=== PATIENT | male | born 1955 | race Caucasian/White ===

== ENCOUNTER 2022-11-04 09:37 | Day surgery (SDC) | payer BC, SELFPAY ==
[2022-11-04] VITALS (10 sets, daily range): BP systolic 129–156; BP diastolic 67–90; PULSE 60–95; RESP 14–18; TEMP 36.6; O2SAT 97–99; BMI 28.0
[2022-11-04] MEDS: lidocaine HCL 2 % MULTIDOSE 20 ML VIAL INJECTION (10:15)
[2022-11-04] MEDS: BUPIVACAINE 0.5% 30 ML INJECTION (10:15)
--- NOTE | 2022-11-04 10:51 | P.ORPRC_ITS ---
Procedure Note Date of procedure: 11/04/22 Procedure: Preop diagnosis: Left hand index finger stenosing tenosynovitis Postop diagnosis: Left hand index finger stenosing tenosynovitis Procedure: Left hand index finger A1 olga lidia release Anesthesia: Local Surgeon: Jey Mckeon MD surgical supply assistant: Faiza Rowell PA-C EBL: 0 mL Complications: None Specimens: None Drains: None Preoperative antibiotics: None Indications: The patient has a history of left upper extremity index finger painful catching and locking. Despite appropriate non operative management including flexor tendon sheath corticosteroid injections they continue to have symptoms. Operative intervention was recommended. The risks, benefits alternatives and expected outcomes were discussed in detail. These included but were not limited to: Infection, bleeding, injury to blood vessel or nerve, venous thromboembolism. All questions were answered to their satisfaction. The patient was placed supine on the operating room table. Local anesthesia was established with 0.5% Marcaine without epinephrine and 2% lidocaine without epinephrine. The hand was prepped and draped in usual sterile fashion. The limb was elevated the forearm pneumatic tourniquet was inflated to 250 mm of mercury. A transverse incision was made centered over the base of the index finger in the distal palmar crease. Subcutaneous dissection was taken through the palmar fascia to the flexor tendons with the tenotomy scissors. The A1 olga lidia was released with the 15 blade and a tenotomy scissors. Active flexion and extension of the finger shows no catching or locking, no bowstringing of the flexor tendons. The wound was closed with interrupted nylon sutures. A dry dressing was applied the tourniquet was released. Sponge and needle counts were correct x 2. The patient tolerated the procedure well, there were no apparent complications. They were sent to same day surgery in satisfactory condition. Plan: Use of the hand as tolerates. Discontinue the intraoperative dressing on postoperative day 3 and may get the wound wet as tolerates. Follow up in the office in 2 weeks for a wound check and suture removal.
== END 2022-11-04 10:59 | disposition home or self-care (01) ==
PROVIDERS: PCP Family Medicine; Visit Provider Orthopaedic Surgery
PROC: (CPT 26055; principal; 2022-11-04 10:45)
DX: M65.322 Trigger finger, left index finger (principal); M65.842 Other synovitis and tenosynovitis, left hand
CPT/HCPCS: 26055; J3490

== ENCOUNTER 2023-09-05 00:41 | Emergency (ER) | payer MEDICARE, BC, SELFPAY ==
[2023-09-05] VITALS (16 sets, daily range): BP systolic 133–170; BP diastolic 65–108; PULSE 60–79; RESP 16–18; TEMP 36.7; O2SAT 92–100; BMI 29.8
--- NOTE | 2023-09-05 00:53 | ED_ITS ---
HPI - General Adult General Chief complaint: Chest Pain Stated complaint: chest pain Time Seen by Provider: 09/05/23 00:56 History of Present Illness HPI narrative: CC: Epigastric Pain pt. awoke around midnight with epigastric pain . took 1 nitro with no relief . denies fevers, n/v, diarrhea, cough 68-year-old man presenting to the emergency department woke from sleep describing a twisting pain in the low sternal area. Had nuts before bed. Wondering if that might a be related. Does not think he is anxious just anxious due to the pain. Went to bed in usual state of health. No rashes. Tongue or lip swelling. Not really with numbness or tingling peripherally. No lower abdominal pain. Denies constipation. No fevers recently. Does have a history of cardiovascular disease with triple-vessel bypass. Remote smoker. Did try 1 nitro which did not affect anything. Related Data Home Medications Medication Instructions Recorded Confirmed amlodipine 5 mg tablet 5 mg PO QDAY 10/20/22 09/05/23 aspirin 81 mg tablet,delayed 81 mg PO QDAY 10/20/22 09/05/23 release atorvastatin 40 mg tablet 40 mg PO QDAY 10/20/22 09/05/23 Allergies Allergy/AdvReac Type Severity Reaction Status Date / Time bee venom protein (honey bee) Allergy Verified 09/05/23 00:53 Review of Systems Status of ROS: Reports: 6 or more systems reviewed and unremarkable except as noted in History and below [facility] Surgical History S/P trigger finger release (11/03/22) ?Z98.890 - Other specified postprocedural states (ICD-10) History of ankle surgery ?Z98.890 - Other specified postprocedural states (ICD-10) S/P triple vessel bypass (~09/2017) ?Z95.1 - Presence of aortocoronary bypass graft (ICD-10) Social History Smoking Status: Former smoker What tobacco products do you use: cigarettes Smoking quit date/years: >15 years ago Do you use any of these nicotine containing products: None Second hand tobacco smoke exposure: No How often do you have a drink containing alcohol: never How often do you have six or more drinks on one occasion: Never AUDIT-C Alcohol total score: 0 Non-prescribed substance use: denies use Exam Narrative: Exam Narrative: Pleasant. Skin is warm and dry. Tremulous. Does appear anxious. Sternotomy scar. Mildly labored breathing. No stridor. Lungs are clear without wheeze. Cranial nerves 2-12 intact. Moving all extremities equally with good strength. Sensation intact. Well-perfused. Mild pretibial pitting edema right greater than left; reportedly chronic. Heart is in a regular rate and rhythm. Mildly uncomfortable to palpation in the epigastrium. Not so much in the right upper quadrant. Abdomen is little tense but not peritoneal. Const: Vital Signs, click to edit/add: Vital Signs - 24 hr 09/05/23 00:50 09/05/23 00:51 09/05/23 00:54 Temperature 98.0 F Pulse Rate 79 Pulse Rate [Right Pulse Oximeter] 78 Respiratory Rate 18 Blood Pressure 165/108 H Blood Pressure [Ri ght Upper Arm] 165/108 H Pulse Oximetry 98 99 100 Oxygen Delivery Me thod Room Air 09/05/23 00:55 09/05/23 01:07 09/05/23 01:08 Temperature Pulse Rate 78 60 64 Pulse Rate [Right Pulse Oximeter] Respiratory Rate Blood Pressure 170/101 H Blood Pressure [Ri ght Upper Arm] Pulse Oximetry 100 99 100 Oxygen Delivery Me thod 09/05/23 01:12 09/05/23 01:15 09/05/23 01:22 Temperature Pulse Rate 61 69 69 Pulse Rate [Right Pulse Oximeter] Respiratory Rate Blood Pressure 164/94 H 164/100 H Blood Pressure [Ri ght Upper Arm] Pulse Oximetry 100 100 100 Oxygen Delivery Me thod 09/05/23 01:30 09/05/23 01:32 09/05/23 01:42 Temperature Pulse Rate 75 68 67 Pulse Rate [Right Pulse Oximeter] Respiratory Rate 16 Blood Pressure 165/106 H 133/65 Blood Pressure [Ri ght Upper Arm] Pulse Oximetry 100 99 92 Oxygen Delivery Me thod 09/05/23 01:52 09/05/23 02:02 09/05/23 03:34 Temperature Pulse Rate 79 68 72 Pulse Rate [Right Pulse Oximeter] Respiratory Rate 16 16 16 Blood Pressure 136/69 136/94 H 135/74 Blood Pressure [Ri ght Upper Arm] Pulse Oximetry 99 98 97 Oxygen Delivery Me thod 09/05/23 03:47 09/05/23 03:47 Temperature 98.0 F 98.0 F Pulse Rate Pulse Rate [Right Pulse Oximeter] 78 78 Respiratory Rate 16 16 Blood Pressure Blood Pressure [Ri ght Upper Arm] 135/74 135/74 Pulse Oximetry 97 Oxygen Delivery Me thod Room Air Documenting provider has reviewed patient's vital signs: yes Course Vital Signs Vital signs: Initial Vital Signs Pulse Oximetry 98 09/05/23 00:50 Vital Signs Pulse Oximetry 98 09/05/23 00:50 Temperature 98.0 F 09/05/23 03:47 Pulse Rate 78 09/05/23 03:47 Respiratory Rate 16 09/05/23 03:47 Blood Pressure 135/74 09/05/23 03:47 Pulse Oximetry 97 09/05/23 03:47 Oxygen Delivery Method Room Air 09/05/23 03:47 Medical Decision Making MDM Narrative Medical decision making narrative: He seems extremely uncomfortable. With cardiac history certainly concern of ischemic event. I would have some concerns also about heartburn related matter. This may be though a diagnosis of exclusion. May be pancreatitis, pneumomediastinum pneumothorax, vascular disruption --will screen with D-dimer. Monitored on teletypesetter monitor. Initial EKG is reassuring with baseline irritability consistent with his tremulousness that I associate with subsequent anxiety. Chest x-ray reviewed by me looks to be WNL with expected postoperative changes. Morphine helped then pain returned. Had been also requested for nitro glycerin and lorazepam. Seems the latter helped in particular. Still with some discomfort and elevated blood pressure I did order GI cocktail. He does report how that seem to hit the spot. Repeat troponin was negative. With noted elevated AST does acknowledge having tried a new winery with spouse last night. I do suspect that heartburn/GERD with esophageal spasm? is most likely the etiology of this pain. See patient discharge plan Medical Records Medical records reviewed: Yes I reviewed the patient's medical records Lab Data Lab results reviewed: Yes I reviewed the patient's lab results Labs: Lab Results 09/05/23 09/05/23 09/05/23 Range/Units 00:45 00:55 01:23 WBC 6.88 (4.50-11.00) K/uL RBC 4.70 (4.30-5.90) m/uL Hgb 13.9 (13.5-17.5) gm/dL Hct 43.1 (37.0-53.0) % MCV 92 (80-100) fL MCH 30 (26-34) pg MCHC 32 (32-36) gm/dL RDW Coeff of Gayatri 13.3 (11.5-15.5) % Plt Count 197 (140-440) K/uL Neut % (Auto) 55.6 (42.0-72.0) % Lymph % (Auto) 29.9 (20-44) % Charlton % (Auto) 10.0 (0.0-11.0) % Eos % (Auto) 3.8 (0.0-7.0) % Baso % (Auto) 0.6 (0.0-3.0) % Neut # (Auto) 3.82 (1.7-7.0) K/uL Lymph # (Auto) 2.06 (0.90-2.90) K/uL Charlton # (Auto) 0.70 (0.00-0.90) K/UL Eos # (Auto) 0.26 (0.00-0.50) K/uL Baso # (Auto) 0.04 (0.00-0.30) K/uL Abs Immat Gran (auto) 0.01 (0.00-0.30) K/uL Imm/Tot Granulo (auto) 0.1 % D-Dimer Quant (PE/DVT) 0.43 (0.00-0.50) ug/ml Sodium 141 (135-149) mmol/L Potassium 3.6 (3.6-5.1) mmol/L Chloride 108 (96-114) mmol/L Carbon Dioxide 25 (20-32) mmol/L Anion Gap 8 (7-15) mEq/L BUN 18 (7-30) mg/dL Creatinine 0.9 (0.5-1.5) mg/dL Estimated Creat Clear 78.68 Estimated GFR 94 ml/min Glucose 133 H (60-115) mg/dL Calcium 9.1 (8.4-10.6) mg/dL Magnesium 2.1 (1.5-2.6) mg/dL Total Bilirubin 0.5 (0.1-1.5) mg/dL Direct Bilirubin 0.0 (0.0-0.5) mg/dL AST 87 H (12-35) U/L ALT 36 (4-50) U/L Alkaline Phosphatase 62 (40-150) U/L Troponin I < 0.01 L (0.01-0.04) ng/mL C-Reactive Protein < 0.5 L (0.5-1.0) mg/dL NT-Pro-B Natriuret Pep 196 pg/mL Total Protein 7.2 (6.0-8.3) g/dL Albumin 4.2 (3.3-5.0) g/dL Lipase 95 (23-300) U/L Ethyl Alcohol < 0.01 L (0.01-0.03) % Lab Acknowledgement Test Added POC Troponin I 0.00 L (0.01-0.04) ng/ml 09/05/23 Range/Units 02:57 WBC (4.50-11.00) K/uL RBC (4.30-5.90) m/uL Hgb (13.5-17.5) gm/dL Hct (37.0-53.0) % MCV (80-100) fL MCH (26-34) pg MCHC (32-36) gm/dL RDW Coeff of Gayatri (11.5-15.5) % Plt Count (140-440) K/uL Neut % (Auto) (42.0-72.0) % Lymph % (Auto) (20-44) % Charlton % (Auto) (0.0-11.0) % Eos % (Auto) (0.0-7.0) % Baso % (Auto) (0.0-3.0) % Neut # (Auto) (1.7-7.0) K/uL Lymph # (Auto) (0.90-2.90) K/uL Charlton # (Auto) (0.00-0.90) K/UL Eos # (Auto) (0.00-0.50) K/uL Baso # (Auto) (0.00-0.30) K/uL Abs Immat Gran (auto) (0.00-0.30) K/uL Imm/Tot Granulo (auto) % D-Dimer Quant (PE/DVT) (0.00-0.50) ug/ml Sodium (135-149) mmol/L Potassium (3.6-5.1) mmol/L Chloride (96-114) mmol/L Carbon Dioxide (20-32) mmol/L Anion Gap (7-15) mEq/L BUN (7-30) mg/dL Creatinine (0.5-1.5) mg/dL Estimated Creat Clear Estimated GFR ml/min Glucose (60-115) mg/dL Calcium (8.4-10.6) mg/dL Magnesium (1.5-2.6) mg/dL Total Bilirubin (0.1-1.5) mg/dL Direct Bilirubin (0.0-0.5) mg/dL AST (12-35) U/L ALT (4-50) U/L Alkaline Phosphatase (40-150) U/L Troponin I (0.01-0.04) ng/mL C-Reactive Protein (0.5-1.0) mg/dL NT-Pro-B Natriuret Pep pg/mL Total Protein (6.0-8.3) g/dL Albumin (3.3-5.0) g/dL Lipase (23-300) U/L Ethyl Alcohol (0.01-0.03) % Lab Acknowledgement POC Troponin I 0.00 L (0.01-0.04) ng/ml ECG Data Attestation: I personally reviewed and interpreted this ECG as follows: (Baseline irritability. Looks to be in a sinus rhythm rate of 72. No acute ischemic changes) Discharge Plan Discharge Clinical Impression: Acute epigastric pain Patient Disposition: Home w/ Parent or Adult Condition: Improved Additional Instructions: It seems as though you may have had a flare of heartburn or gastritis of some sort. This may have been triggered by alcohol consumption yesterday. I can not find evidence of any injury to your heart recently. You might consider famotidine [id number] for a couple of weeks. 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 I would also check in with your primary care provider or cardiology clinic about any further recommendations. Otherwise return for persistent recurrence of this discomfort, increasing shortness of breath, worsening lightheadedness. Prescriptions: No Action amlodipine 5 mg tablet 5 mg PO QDAY atorvastatin 40 mg tablet 40 mg PO QDAY aspirin 81 mg tablet,delayed release (DR/EC) 81 mg PO QDAY Follow Up/Referrals: Erlinda Macedo MD [Primary Care Provider] - Stand Alone Forms: [employer] Info Instructions
--- NOTE | 2023-09-05 00:54 | CRLHL7_ITS ---
For Patients: As a result of the Cures Act, medical imaging exams and procedure reports are released immediately into your electronic medical record. You may view this report before your referring provider. If you have questions, please contact your health care provider. INDICATION: Chest pain. TECHNIQUE: Chest 1 views. COMPARISON: None. FINDINGS: Cardiovascular and mediastinum: Heart size and vasculature are normal in caliber and appearance. Lungs and pleural spaces: Elevation left hemidiaphragm. Lungs are clear. No sign of infiltrate or mass. No sign of pleural effusion. No pneumothorax. Bones and soft tissues: No significant findings. IMPRESSION: No acute or significant findings. Dictated by Stef Pulido MD @ 09/05/2023 1:29:20 AM (Electronically Signed)
[2023-09-05 01:03] LABS: Basophils Percent Auto 0.6 % (0.0-3.0); Eosinophils Percent Auto 3.8 % (0.0-7.0); Hematocrit 43.1 % (37.0-53.0); Hemoglobin* 13.9 gm/dL (13.5-17.5); Lymphocytes Percent Auto 29.9 % (20-44); Mean Corpuscular HGB Conc 32 gm/dL (32-36); Mean Corpuscular Hemoglobin 30 pg (26-34); Mean Corpuscular Volume 92 fL (80-100); Neutrophils Percent Auto 55.6 % (42.0-72.0); Platelet Count* 197 K/uL (140-440); RDW Coefficient of Variation % 13.3 % (11.5-15.5); White Blood Count* 6.88 K/uL (4.50-11.00)
[2023-09-05 01:04] LABS: Basophils Absolute Auto 0.04 K/uL (0.00-0.30); Eosinophils Absolute Auto 0.26 K/uL (0.00-0.50); Immature Granulocytes Abs Auto 0.01 K/uL (0.00-0.30); Immature Granulocytes Pct Auto 0.1 %; Lymphocytes Absolute Auto 2.06 K/uL (0.90-2.90); Neutrophils Absolute Auto 3.82 K/uL (1.7-7.0)
[2023-09-05 01:05] LABS: Slide Review Reflex No
[2023-09-05 01:08] LABS: Chloride* 108 mmol/L (96-114)
[2023-09-05 01:09] LABS: Albumin* 4.2 g/dL (3.3-5.0); Potassium* 3.6 mmol/L (3.6-5.1); Sodium* 141 mmol/L (135-149)
[2023-09-05] MEDS: 0.9 % SODIUM CHLORIDE 500 ML 500 ML IV (01:09)
[2023-09-05] MEDS: MORPHINE 4 MG/ML INJ IVP (01:09)
[2023-09-05] MEDS: LORazepam 2 MG/ML inj 0.5 MG IVP (01:09)
[2023-09-05 01:12] LABS: Alanine Aminotransferase* 36 U/L (4-50); Alkaline Phosphatase* 62 U/L (40-150); Anion Gap 8 mEq/L (7-15); Aspartate Amino Transferase* 87 U/L (12-35); Bilirubin Total* 0.5 mg/dL (0.1-1.5); Blood Urea Nitrogen* 18 mg/dL (7-30); Calcium* 9.1 mg/dL (8.4-10.6); Carbon Dioxide* 25 mmol/L (20-32); Creatinine* 0.9 mg/dL (0.5-1.5); Est. Creatinine Clearance* 78.68; Estimated Glomerular Filt Rate 94 ml/min; Glucose* 133 mg/dL (60-115); Lipase* 95 U/L (23-300); Magnesium* 2.1 mg/dL (1.5-2.6); Total Protein* 7.2 g/dL (6.0-8.3)
[2023-09-05 01:13] LABS: D Dimer Quantitative* 0.43 ug/ml (0.00-0.50)
[2023-09-05 01:15] LABS: C Reactive Protein* < 0.5 mg/dL (0.5-1.0)
[2023-09-05 01:26] LABS: NT Pro B Type NatriureticPept* 196 pg/mL; Troponin I* < 0.01 ng/mL (0.01-0.04)
[2023-09-05] MEDS: NITROGLYCERIN 0.4 MG TAB.SUBL SUBLINGUAL (01:33)
[2023-09-05 01:40] LABS: Ethanol* < 0.01 % (0.01-0.03)
[2023-09-05] MEDS: lidocaine HCL 4 % TOP SOLN 50 ML BOTTLE 7.5 ML PO (02:02)
[2023-09-05] MEDS: MAG HYDROX/ALUMINUM HYD/SIMETH 30 ML ORAL.SUSP PO (02:02)
== END 2023-09-05 03:48 | disposition home or self-care (01) ==
PROVIDERS: Emergency Provider Family Medicine; PCP Family Medicine
DX: R10.13 Epigastric pain (principal)
CPT/HCPCS: 36415; 71045; 80048; 80076; 82077; 83690; 83735; 83880; 84484; 85025; 85379; 86140; 93005; 94761; 99284; 99285; A9270; J2060; J2270; J7120